=== PATIENT | male | born 1955 | race Caucasian/White ===

== ENCOUNTER 2024-10-25 07:37 | Outpatient (CLI) | payer MEDICARE, SELFPAY ==
--- NOTE | 2024-10-25 | CA_ITS ---
APPROVED REPORT Exam: Exercise Treadmill Technologist: Kaity Marie Ht: 6 ft 0 in Wt: 175 lbs BSA: 2.01 m2 HR: 59 bpm BP: 137/76 mmHg Stress Test Details Test: Exercise stress testing was performed using a Kavon protocol. HR Resting HR: 59 bpm Max Heart Rate (APMHR): 153.920962 bpm Max HR Achieved: 161 bpm Target HR (85% APMHR): 130.524366 bpm % of APMHR: 105.23 Recovery HR: 89 bpm BP Resting BP: 137.0/76.0 mmHg Max BP: 164.0/72.0 mmHg Recovery BP: 164.0/72.0 mmHg ECG Resting ECG: Sinus bradycardia Stress ECG Conclusion Symptoms: Dyspnea Arrhythmias/Ectopy: Multiple PVCs ST-T Changes: Less than [address] depression. Conclusion:Normal EKG response to exercise. Electronically signed by : Lena Dodge MD 10/25/2024 13:05:44
--- OUTSIDE RECORDS SUMMARY | 2024-10-25 07:40 | XMS_ITS ---
Author Organization Unknown Problems Date Problem Result OnSetDate Icd10 SnomedCode Severity 05/26/2022 00:00:00 Benign prostatic hyperplasia without lower urinary tract symptoms N40.0 [id number] 05/26/2022 00:00:00 Hyperlipidemia, unspecified hyperlipidemia type E78.5 [id number] 05/26/2022 00:00:00 Perianal abscess K61.0 [id number]
--- NOTE | 2024-10-25 07:41 | NM_ITS ---
APPROVED REPORT Exam: Nuclear Stress Test Indication: SOB, Family history, Dysrhythmia Patient Location: Outpatient Stress Tech: Kaity Marie NM Tech:Ashley Mcelroy, ARRT, RT (R)(N) Ht: 6 ft 0 in Wt: 175 lbs HR: 57 bpm BP: 137/76 mmHg BSA: 2.01 m2 TID: 1.07 History: SOB, Family history, Dysrhythmia Procedure: Patient exercised on Kavon protocol 10:10 minutes and sec, resting heart rate 57 bpm, resting blood pressure 137/76 mmHg, with exercise maximum heart rate achived was 161 bpm which is 105 % of the maximum predicted heart rate and blood pressure was 164/72 mmHg. Test was stopped due to SOB. Patient denied any complaint of chest pain. Patient has average exercise capacity, achieved 12.1 METs of workload on treadmill, the blood pressure response to exercise was normal. Cardiac Stress and Resting SPECT Images: Cardiac Stress and Resting SPECT images were obtained using technetium 99m Myoview 32.9 mCi stress and 10.30 mCi at rest. Raw images demonstrate significant soft tissue overlap of the cardiac borders. This may affect diagnostic interpretation of the study findings. Resting and stress imaging in supine positions demonstrated a medium sized, moderate, predominantly fixed perfusion defect in the basal to mid inferior LV wall. There is a small region of reversibility towards the mid inferior LV wall. Gated imaging demonstrates mild reduction global LV systolic function. LVEF is calculated at 48%. Conclusion: Medium sized, moderate, predominantly fixed perfusion defect in the basal to mid inferior LV wall. There is a small region of reversibility towards the mid inferior LV wall. Findings are suggestive of partial reversible ischemia. Gated imaging demonstrates mild reduction global LV systolic function. LVEF is calculated at 48%. Electronically signed by : Lena Dodge MD 10/25/2024 13:05:17
[2024-10-25] MEDS: SODIUM CHLORIDE 0.9% 10ML SYR (RAD ONLY) 10 ML IV ×2 (09:28)
[2024-10-25] MEDS: ISOTOPE MYOVIEW (PER STUDY) 1 DOSE IV (09:28)
== END 2024-10-25 23:59 | disposition home or self-care (01) ==
LOC: RAD 07:38
PROVIDERS: PCP Family Medicine; Visit Provider Family Medicine
DX: I49.3 Ventricular premature depolarization (principal); R00.1 Bradycardia, unspecified; R94.39 Abnormal result of other cardiovascular function study; R94.31 Abnormal electrocardiogram [ECG] [EKG]
CPT/HCPCS: 78452; 93016; 93017; 93018; A9502

== ENCOUNTER 2024-11-02 12:25 | Outpatient (CLI) | payer MEDICARE, OTHER, SELFPAY | END 2024-11-02 23:59 | disposition home or self-care (01) | LOC: RT 12:27 | PROVIDERS: PCP Family Medicine; Visit Provider Internal Medicine | DX: I49.1 Atrial premature depolarization (principal); I49.3 Ventricular premature depolarization; I47.29 Other ventricular tachycardia | CPT/HCPCS: 93270 ==

== ENCOUNTER 2024-11-16 11:43 | Outpatient (CLI) | payer MEDICARE, OTHER, SELFPAY ==
[2024-11-16] VITALS (7 sets, daily range): BP systolic 87–123; BP diastolic 53–82; PULSE 50–70; RESP 16–18; O2SAT 96–99; BMI 23.7
[2024-11-16] MEDS: IVABRADINE HCL 7.5MG TABLET PO (12:17)
[2024-11-16] MEDS: METOPROLOL TARTRATE 50MG TABLET PO (12:17)
[2024-11-16 12:45] LABS: Chloride 96 mmol/L (98-107)
[2024-11-16 12:46] LABS: Potassium 4.6 mmoL/L (3.5-5.1); Sodium 129 mmol/L (136-145)
[2024-11-16 12:49] LABS: Anion Gap 7.6 mEq/L (5-15); Blood Urea Nitrogen 16 mg/dl (9-20); Calcium 9.0 mg/dl (8.4-10.2); Carbon Dioxide 30 mmol/L (22.0-30.0); Creatinine Clearance Estimated 80 mL/min (50-200); Creatinine,Serum 0.80 mg/dl (0.66-1.25); Estimated Glomerular Filt Rate 96 ml/min (>60); GFR (African American) 117 ML/MIN (>60); Glucose 78 mg/dl (74-100)
[2024-11-16] MEDS: NITROGLYCERIN 0.4MG SL TABLET SL (12:58)
[2024-11-16] MEDS: IOPAMIDOL-370 (76%);100ML BOTTLE 80 ML IV (13:02)
[2024-11-16] MEDS: 0.9 % SODIUM CHLORIDE 50 ML VIAL IV (13:02)
[2024-11-16] MEDS: SODIUM CHLORIDE 0.9% 10ML SYR (RAD ONLY) 10 ML IV (13:02)
--- NOTE | 2024-11-16 13:45 | CA_ITS ---
APPROVED REPORT EXAM: Comprehensive 2D, Doppler, and color-flow Echocardiogram Nursing Aide: Carolin Villarreal RVT Ht: 6 ft 0 in Wt: 181lbs BSA: 2.04 BP: 123/67 mmHg Indications: SHORTNESS OF BREATH,CHEST PAIN,ABNORMAL GXT 2D Dimensions LA Volume 29.60 mL LA Volume Index 14.51 mL/m2 (M/F) 16-34 M-Mode Dimensions RVDd 2.92 cm (0.9-2.6) LA Diam 2.97 cm (1.9-4.0) LVDd 4.55 cm (3.5-5.7) LVDs 3.23 cm (3.5-5.7) IVSd 1.40 cm (0.6-1.1) PWd 0.87 cm (0.6-1.1) EF (Teich) 55.80% FS 29.00% EDV (Teich) 94.90 mL TAPSE 1.88 (<1.7) ESV (Teich) 41.90 mL LV Diastology E Decel Time 277 (160-240 msec) E/A Ratio 0.8 Aortic Valve SHAWN Index 1.33 cm2/m2 AoV Peak Stephan. 108.0 (50-130 cm/s) AI PHT 707.00 ms AO Peak GR. 4.70 mmHg AO Mean GR. 2.90 (<5 mmHg) AO VTI 27.4 (18-25 cm) HSAWN (VTI) 2.79 (2.5-4.5 cm2) Mitral Valve MV E Max Stephan. 49.0 (40-130 cm/s) MV A Velocity 61.0 (40-130 cm/s) E/A Ratio 0.80 MV PHT 81.0 ms Pulmonary Valve PV Peak Velocity 52.0 (50-150 cm/s) Tricuspid Valve TR P. Velocity 208.00 cm/s RAP Estimate 8.00 mmHg RVSP 25.30 mmHg Left Ventricle The left ventricle is normal size. Left ventricular systolic function is mildly reduced. There is increased left ventricular wall thickness. There is moderate hypokinesis of the septal and inferoseptal LV diaz. The left ventricular diastolic function is normal. LVEF is 45-50% Right Ventricle The right ventricle is mildly to moderately dilated. The right ventricular systolic function is mildly reduced. Atria Left atrium is mildly dilated. Right atrium is moderately dilated. There is no color Doppler evidence of interatrial shunt. Aortic Valve The aortic valve opens well. There is no hemodynamically significant aortic valvular stenosis. Mild aortic regurgitation is present. Mitral Valve The mitral valve is normal in structure. No evidence of mitral valve stenosis. Mild mitral regurgitation is present. Tricuspid Valve The tricuspid valve leaflets are thin and pliable. Mild tricuspid regurgitation. RVSP is 20-25 mmHg. Pulmonic Valve The pulmonary valve is grossly normal in structure. Mild pulmonic valve regurgitation is present. Great Vessels The aortic root is normal in size. Mildly dilated ascending aorta, measuring 4.1 cm in diameter. IVC is normal in size and collapses >50% with inspiration. Pericardium There is no pericardial effusion. Other Information Study Quality: Fair Conclusion Mildly reduced LV systolic function (LVEF 45-50%). Mild to moderate RV dilation with mild reduction in RV function. Biatrial dilation. Mild AI, mild MR, mild TR, mild PI. Mildly dilated ascending aorta (4.1 cm in diameter). Correlation with new or recent CTA chest is suggested. Electronically signed by : Lena Dodge MD 11/17/2024 09:20:04
== END 2024-11-16 23:59 | disposition home or self-care (01) ==
PROVIDERS: PCP Family Medicine; Visit Provider Internal Medicine
DX: I08.8 Other rheumatic multiple valve diseases (principal); I77.810 Thoracic aortic ectasia; I25.10 Atherosclerotic heart disease of native coronary artery without angina pectoris; R93.1 Abnormal findings on diagnostic imaging of heart and coronary circulation
CPT/HCPCS: 75574; 80048; 93306; Q9967

== ENCOUNTER 2024-12-16 08:26 | Outpatient (CLI) | payer MEDICARE, OTHER, SELFPAY ==
--- OUTSIDE RECORDS SUMMARY | 2024-11-16 13:40 | XMS_ITS | Encounter Summary ---
Author Organization Healthcare Address [address] [place] [address] Care Team Providers Care Carpenter Form Name Role Phone Unavailable Primary Care Provider Unavailabl e Encounter Details Date Type Department Care Team (Late st Contact Info) Description 11/16/2024 1:40 PM EDT Ancillary Procedure [address] [facility] [place] [address] [place] [address] Dyspnea; Chest pain Social History Tobacco Use Types Packs/Day Years Used Date Smoking Tobacco: Never Assessed Sex and Gender Information Value Date Recorded Sex Assigned at Not on file Legal Sex Male 1:37 PM EDT Gender Identity Not on file Sexual Orientation Not on file documented as of this encounter Plan of Treatment Not on file documented as of this encounter Procedures Procedure Name Priority Date/Time Associated Diagnosis Comments CT ANGIO CARDIAC CORONARY ARTERIES Routine 11/16/2024 1:39 PM EDT Dyspnea Chest pain documented in this encounter Results * CT Angio Cardiac Coronary Arteries (11/16/2024 1:39 PM EDT) Anatomical Region Laterality Modality Heart Computed Tomogra phy Impressions 11/16/2024 6:50 PM EDT 1. Mild coronary calcification with an Agatston score = 56 using the AJ-130 method, which represents 41 percentile when matched for age, gender and ethnicity. Vascular age is 70 years. 2. There is motion in the coronaries. There is no obvious significant stenoses. 3. No significant non coronary cardiac findings in particular normal cardiac chambers, non-coronary vessels in the field of view and unremarkable pericardium. 4. Extracardiac structures in the field of view are unremarkable. CRITICAL RESULT: No. COMMUNICATION: Per this written report. Drafted by Flip Guzmán MD on 11/16/2024 6:40 PM Final report signed by Flip Guzmán MD on 11/16/2024 6:50 PM Narrative 11/16/2024 6:50 PM EDT CLINICAL INDICATION: 69 years Male Symptoms: Chest pain with clinical features suggesting myocardial ischemia TECHNIQUE: Procedure Data Image Acquisition: Images were acquired at [facility] in [place], and interpreted at [facility]. A 128-slice MDCT scanner ([employer]) was used for data acquisition. A non-contrast coronary calcium scan was initially performed. was performed. Bolus tracking in the ascending aorta with a threshold of 180HU. Immediately afterwards, ECG synchronized Cardiac CT was then performed from cardiac base to apex using retrospective gating. A total of 85 mL Isovue 370mg/mL contrast media was administered at 5 mL/sec followed by a saline flush using a biphasic injection protocol. A tube voltage of 120 kVp was used. The patient received the following medications prior to the Cardiac CT: 50mg of po metoprolol, 15mg of po ivabradine, and 0.8mg sublingual nitroglycerin. The average heart rate at the time of acquisition was 58 bpm (57 bpm to 60 bpm) and regular. Image Reconstruction: Transaxial images were reconstructed at 0.63 mm slice thickness. Data was reviewed interactively on an advanced workstation (Modti) capable of 2 and 3 dimensional displays in all conventional reconstruction formats including multiplanar reformations, maximum intensity projections, curved multiplanar reformations, and volume rendered reconstructions. Selected routine images displaying relevant coronary anatomy and pathology were saved and sent to PACS. Complications: None Technical Quality: Overall image quality is Suboptimal due to significant breathing motion Coronary artery opacification is Adequate Total DLP (Dose-Length Product): 2897.5mGycm. (40.6 mSv) Please note: The reported value represents the total of one or more individual components during the CT acquisition on this date and at this time, and as such, the same value may appear in more than one CT report depending on the interpreting/reporting physicians. COMPARISON: None. FINDINGS: -CT Coronary Calcium Scoring- LMA= 0 LAD= 56 LCX= 0 RCA= 0 Total calcium score = 56 using the AJ-130 method. This score is in the 41 percentile rank for age and gender, meaning that 59 % of patients of the same age and gender will have a higher score. The total volume score is 53. The calculated vascular age for this patient is 70 years. There is no identifiable calcification in the aortic wall. -Coronary CT Angiography- Coronary Arteries: The coronaries have normal origin and proximal course. The coronary arterial system is right dominant. Note: Stenosis is reported as maximum percentage diameter stenosis. Stenosis grading is reported using the following scheme. Quantitative Stenosis Grading: CAD-RADS 0: 0% - No visible stenosis CAD-RADS 1: 1-24% - Minimal stenosis CAD-RADS 2: 25-49% - Mild stenosis CAD-RADS 3: 50-69% - Moderate stenosis CAD-RADS 4A: 70-99% - Severe stenosis in 1-2 vessels CAD-RADS 4B: Left main >50%, or 3 vessel >70% CAD-RADS 5: 100% - Occluded Left Main: CAD-RADS 0 The left main is short and bifurcates into the left anterior descending artery and left circumflex artery. LAD and Diagonals: CAD-RADS 2. Large vessel gives off 2 diagonals and reaches the apex. There is motion in the vessel, but the proximal segment of the LAD appears to have mild stenosis with calcified plaque. LCx and Obtuse Marginals: CAD-RADS 0 Medium sized vessel gives off an OM and terminates as a small AV LCx. There is motion in the vessel, but does not appear to have significant stenosis. RCA: CAD-RADS 0 Large dominant vessel, gives off an RV marginal, PDA and [address] branch. There is motion in the vessel, but does not appear to have significant stenosis Non Coronary Cardiac Findings: Normal cardiac chamber size. No pericardial thickening or calcification. Normal interatrial and interventricular septum, atrioventricular valves, ventriculo-arterial valves, pulmonary veins and imaged central veins. Central and branch pulmonary arteries in the field of view are unremarkable. Thoracic aorta and imaged thoracic aortic branches in the field of view are unremarkable. Extra Cardiac Structures: no significant findings Procedure Note Flip Guzmán MD - 11/16/2024 CLINICAL INDICATION: 69 years Male Symptoms: Chest pain with clinical features suggesting myocardialischemia TECHNIQUE: Procedure Data Image Acquisition: Images were acquired at [facility] in [place], andinterpreted at [facility]. A 128-slice MDCT scanner ([employer] was used for data acquisition. A non-contrast coronarycalcium scan was initially performed. was performed. Bolus tracking in theascending aorta with a threshold of 180HU. Immediately afterwards, ECGsynchronized Cardiac CT was then performed from cardiac base to apex usingretrospective gating. A total of 85 mL Isovue 370mg/mL contrast media wasadministered at 5 mL/sec followed by a saline flush using a biphasicinjection protocol. A tube voltage of 120 kVp was used. The patient received the following medications prior to the Cardiac CT:50mg of po metoprolol, 15mg of po ivabradine, and 0.8mg sublingualnitroglycerin. The average heart rate at the time of acquisition was 58 bpm (57 bpm to 60bpm) and regular. Image Reconstruction: Transaxial images were reconstructed at 0.63 mm slice thickness. Data wasreviewed interactively on an advanced workstation (Modti) capable of 2and 3 dimensional displays in all conventional reconstruction formatsincluding multiplanar reformations, maximum intensity projections, curvedmultiplanar reformations, and volume rendered reconstructions. Selectedroutine images displaying relevant coronary anatomy and pathology weresaved and sent to PACS. Complications: None Technical Quality: Overall image quality is Suboptimal due to significant breathing motion Coronary artery opacification is Adequate Total DLP (Dose-Length Product): 2897.5mGycm. (40.6 mSv) Please note: Thereported value represents the total of one or more individual componentsduring the CT acquisition on this date and at this time, and as such, thesame value may appear in more than one CT report depending on theinterpreting/reporting physicians. COMPARISON: None. FINDINGS: -CT Coronary Calcium Scoring- LMA= 0 LAD= 56 LCX= 0 RCA= 0 Total calcium score = 56 using the AJ-130 method. This score is in the 41percentile rank for age and gender, meaning that 59 % of patients of thesame age and gender will have a higher score. The total volume score is53. The calculated vascular age for this patient is 70 years. There is no identifiable calcification in the aortic wall. -Coronary CT Angiography- Coronary Arteries: The coronaries have normal origin and proximal course. The coronaryarterial system is right dominant. Note: Stenosis is reported as maximum percentage diameter stenosis.Stenosis grading is reported using the following scheme. Quantitative Stenosis Grading: CAD-RADS 0: 0% - No visible stenosis CAD-RADS 1: 1-24% - Minimal stenosis CAD-RADS 2: 25-49% - Mild stenosis CAD-RADS 3: 50-69% - Moderate stenosis CAD-RADS 4A: 70-99% - Severe stenosis in 1-2 vessels CAD-RADS 4B: Left main >50%, or 3 vessel >70% CAD-RADS 5: 100% - Occluded Left Main: CAD-RADS 0 The left main is short and bifurcates into the leftanterior descending artery and left circumflex artery. LAD and Diagonals: CAD-RADS 2. Large vessel gives off 2 diagonals andreaches the apex. There is motion in the vessel, but the proximal segmentof the LAD appears to have mild stenosis with calcified plaque. LCx and Obtuse Marginals: CAD-RADS 0 Medium sized vessel gives off an OMand terminates as a small AV LCx. There is motion in the vessel, but doesnot appear to have significant stenosis. RCA: CAD-RADS 0 Large dominant vessel, gives off an RV marginal, PDA and 2PL branch. There is motion in the vessel, but does not appear to havesignificant stenosis Non Coronary Cardiac Findings: Normal cardiac chamber size. No pericardial thickening or calcification. Normal interatrial and interventricular septum, atrioventricular valves,ventriculo-arterial valves, pulmonary veins and imaged central veins. Central and branch pulmonary arteries in the field of view areunremarkable. Thoracic aorta and imaged thoracic aortic branches in the field of vieware unremarkable. Extra Cardiac Structures: no significant findings IMPRESSION: 1. Mild coronary calcification with an Agatston score = 56 using theAJ-130 method, which represents 41 percentile when matched for age, genderand ethnicity. Vascular age is 70 years. 2. There is motion in the coronaries. There is no obvious significantstenoses. 3. No significant non coronary cardiac findings in particular normalcardiac chambers, non-coronary vessels in the field of view andunremarkable pericardium. 4. Extracardiac structures in the field of view are unremarkable. CRITICAL RESULT: No. COMMUNICATION: Per this written report. Drafted by Flip Guzmán MD on 11/16/2024 6:40 PM Final report signed by Flip Guzmán MD on 11/16/2024 6:50 PM Aaron Dodge MD IMG CT PROCEDURES Final Result documented in this encounter Visit Diagnoses Diagnosis Dyspnea Other dyspnea and respiratory abnormality Chest pain Unspecified chest pain documented in this encounter
--- OUTSIDE RECORDS SUMMARY | 2024-12-16 08:41 | XMS_ITS | Clinical Summary ---
Author Organization Healthcare Address [address] [place] [address] Care Team Providers Care Bellows Charger Assembler Name Role Phone Unavailable Primary Care Provider Unavailabl e Encounters Date Type Department Care Team Description 11/16/2024 1:40 PM EDT Ancillary Procedure [place] [id number] [place] [address] [place] [address] Dyspnea; Chest pain from Last 3 Months Social History Tobacco Use Types Packs/Day Years Used Date Smoking Tobacco: Never Assessed Sex and Gender Information Value Date Recorded Sex Assigned at Not on file Legal Sex Male 1:37 PM EDT Gender Identity Not on file Sexual Orientation Not on file Plan of Treatment Health Maintenance Due Date Last Done Comments [facility]-Depression Screening 1957 [facility]-Hepatitis C Screening 1957 [facility]-Medicare Annual Wellness (AWV) 1957 [facility]-/Child/Adol SDOH Screenings 1957 [facility]- SDOH Screenings 1975 [facility]-Adult SDOH Screenings 1975 [facility]-DTaP,Tdap,and Td Vaccine s (1 - Tdap) 1976 CT Colonography 2002 Colonoscopy 2002 FIT-DNA 2002 FIT 2002 FOBT 2002 Sigmoidoscopy 2002 [facility]-Colorectal Cancer Screening 2002 [facility]-Zoster Vaccines (1 of 2) 2007 [id number] Vaccine (3 - season) 2023 10/03/2020, 08/25/2020 [facility]-Influenza Vaccine (#1) 2024 [facility]-RSV Vaccine: 60+ Years o r (1 - 1-dose 75+ series) 2032 [facility]-Pneumococcal Vaccine: 50 + Years Completed 10/13/2024 HPV Vaccines Aged Out No longer eligi ble based on patient's age to complete this topic [facility]-HIB Vaccines Aged Out No longer e ligible based on patient's age to complete this topic [facility]-Hepatitis A Vaccines Aged Out No longer eligible based on patient's age to complete this topic [facility]-IPV Vaccines Aged Out No longer e ligible based on patient's age to complete this topic [facility]-Rotavirus Vaccines Aged Out No lo nger eligible based on patient's age to complete this topic Procedures Procedure Name Priority Date/Time Associated Diagnosis Comments CT ANGIO CARDIAC CORONARY ARTERIES Routine 11/16/2024 1:39 PM EDT Dyspnea Chest pain from Last 3 Months Results * CT Angio Cardiac Coronary Arteries [...] Data Image Acquisition: Images were acquired at [facility] in [place], and interpreted at [facility]. A 128-slice MDCT scanner ([employer] View) was used for data acquisition. A [...] was reviewed interactively on an advanced workstation ([employer]) capable of 2 and 3 dimensional displays [...] Data Image Acquisition: Images were acquired at [facility] in [place], andinterpreted at [facility]. A 128-slice MDCT scanner ([employer]) was used for data acquisition. A non-contrast [...] Data wasreviewed interactively on an advanced workstation ([employer]) capable of 2and 3 dimensional displays in [...] Dodge MD IMG CT PROCEDURES Final Result from Last 3 Months Insurance MEDICARE
--- NOTE | 2024-12-16 08:45 | CA_ITS ---
APPROVED REPORT EXAM: Limited 2D Echocardiogram with contrast Telephone Plant Power Operator: RT Ruddy(R) Ht: 6 ft 0 in Wt: 180lbs BSA: 2.04 BP: 147/73 mmHg Indications: Ordered as limited with Definity, EF 45-50% echo done 11/16/24 Echo Enhancing Agent Indication: Endocardial border delineation Agent(s) / Amount(s) Used: Definity 2 cc Other Information Study Quality: Fair Conclusion This is a limited TTE to evaluate for LV systolic function. Limited windows are obtained. Ultrasound enhancing agent is administered to optimally delineate the LV endocardial borders. The left ventricle is normal in size. There is increased LV wall thickness. There is normal global LV systolic function. LVEF is 60%. Administration of ultrasound enhaning agent demonstrates no evidence of LV thrombus. Electronically signed by : Lena Dodge MD 12/16/2024 17:57:51
[2024-12-16] MEDS: DEFINITY US ECHO CONTRAST 2ML INJ 2 MG IV (09:05)
== END 2024-12-16 23:59 | disposition home or self-care (01) ==
LOC: RT 08:27
PROVIDERS: PCP Family Medicine; Visit Provider Internal Medicine
DX: I51.7 Cardiomegaly (principal); I77.810 Thoracic aortic ectasia; I51.89 Other ill-defined heart diseases
CPT/HCPCS: 93308; Q9957